=== PATIENT | female | born 1985 | race Hispanic/Latino ===

== ENCOUNTER 2025-10-04 13:53 | Emergency (ER) | payer OTHER ==
[~2025-10-04] VITALS: Ht 152.4 cm; Wt 68.0 kg
[2025-10-04] MEDS: TETRACAINE HCL 0.5% 4 ML OPHTH SOLN OP ONE (14:20)
[2025-10-04] MEDS: FLUORESCEIN SODIUM 1 STRIP STRIP OP ONE (14:20)
--- NOTE | 2025-10-04 14:32 | ERN ---
General Chief Complaint: Eye Problems Stated Complaint: RIGHT EYE DISCOLORATION ONSET YESTERDAY Time Seen by MD: 13:55 History of Present Illness Initial Comments 40-year-old female presents for sudden onset right eye redness beginning yesterday. She has chemosis. No vision changes. No itching. No discharge. No contacts. No other symptoms. No sick contacts. Allergies: Coded Allergies: Iodinated Contrast Media (Unverified Allergy, Unknown, 10/04/25) Penicillins (Unverified Allergy, Unknown, 10/04/25) methylprednisolone (Unverified Allergy, Unknown, 10/04/25) Past Medical History Past Medical History: No Pertinent History Past Surgical History: None ROS Dictation CONSTITUTIONAL: No chills, no fever, no weakness, no diaphoresis, no malaise. HEAD/FACE: No signs of trauma. EENT: Right red eye with chemosis, foreign body sensation RESPIRATORY: No cough, no orthopnea, no SOB, no stridor, no wheezing. CARDIOVASCULAR: No chest pain, no edema, no palpitations, no syncope. GASTROINTESTINAL/ABDOMINAL: No abdominal pain, no constipation, no diarrhea, no nausea, no vomiting. GENITOURINARY: No abnormal discharge, no dysuria, no frequent urination, no hematuria. No complaints of pain in the genitals. MUSCULOSKELETAL: No back pain, no gout, no joint pain, no joint swelling, no muscle pain, no muscle stiffness, no neck pain. INTEGUMENTARY: No change in color, no change in hair/nails, no dryness, no lesion, no lumps, no rash. NEUROLOGICAL/PSYCH: No anxiety, not depressed, no emotional problem, no headache, no numbness, no pre-existing deficit, no history of seizures, no tremors, no weakness. HEMATOLOGIC/LYMPHATIC: Not anemic, no history of blood clots, no apparent bleeding, no bruising, glands not swollen. All Systems Negative, Except as Noted. Physical Exam Physical Exam Dictation VITAL SIGNS: Reviewed. GENERAL APPEARANCE: Alert, oriented x3, no acute distress, obese. HEAD AND FACE: Non-traumatic. EYES: PERRL, pink conjunctivas, eyelid no trauma, anterior chamber clear. EARS: Pinnas intact and no signs of trauma or erythema. Ear canals clear and no discharge. TMs no erythema. NOSE: No discharge, no bleeding. OROPHARYNX: Mouth normal, teeth no caries, tongue pink. Pharynx clear, no erythema. Tonsils no exudates, no abscesses noted. Mucous membrane moist. NECK: Supple, non-tender, no thyromegaly, no masses, no JVD, no bruits. BREAST: Deferred. CHEST: No tenderness, no crepitus, no paradoxical movement, no retractions. LUNGS: Clear, well-ventilated, symmetric, no rales, no wheezing, no rhonchi, no stridor, good breath sounds bilaterally. HEART: Regular rate, regular rhythm, no murmur, no gallops. VASCULAR: No peripheral edema. ABDOMEN: Soft, positive bowel sounds, nondistended, no guarding, nontender, no rebound, no masses no hepatomegaly, no splenomegaly, no Philip's sign, no hernias. RECTAL: Deferred. GENITAL: Deferred. NEUROLOGICAL: Normal speech, gross motor function intact, gross sensory function intact. MUSCULOSKELETAL: Neck nontender, full range of motion, back nontender, full range of motion. EXTREMITIES: Nontender, full range of motion. SKIN: Color pink, dry, no turgor, no rash, no lacerations, no abrasions, no contusions. LYMPHATICS: Deferred. MDM CC: Atraumatic right eye redness Historian: Patient Comorbidities: None Limitations by social determinants of health: None Differential diagnosis: Chemosis, allergic reaction, infectious, trauma or irritation, other Clinically patient has chemosis, no vision changes, CAMILO, EOMI. No signs of glaucoma or under the life-threatening pathology. There was no discharge or signs of bacterial infection. I performed a stain, there is no foreign bodies no major uptake. Symptoms most consistent with a ecchymosis. I suspect allergic versus viral ve rsus some exposure/environmental irritation. There was no signs of systemic or vascular cause no signs of elevated venous pressure or serious ocular emergency such as orbital compartment syndrome or retrobulbar hemorrhage. Plan will be to discharge with pain noted with symptomatic support such as cold compresses and lubricating artificial tears, and avoiding rubbing. ED Course Orders Procedure Category Date Status Time Fluorescein Sodium PHA 10/04/25 In Process (Akhkq-P-Kbmer At) 14:30 Tetracaine Hcl PHA 10/04/25 In Process (Pontocaine 0.5% 14:30 Current Medications Medications (Trade) Dose Ordered Sig/John Route PRN Reason Start Time Stop Time Status Last Admin Dose Admin Fluorescein Sodium (Cqzjh-[id number]-Lqavv At) 1 strip ONCE ONCE OP 10/04/25 14:30 10/04/25 14:31 Tetracaine HCl (Pontocaine 0.5% Ophth Soln) 1 OR 2 DROPS ONCE ONCE OP 10/04/25 14:30 10/04/25 14:31 Vital Signs Date Time Temp Pulse Resp B/P (MAP) Pulse Ox O2 Delivery O2 Flow Rate FiO2 10/04/25 13:56 97.7 79 16 118/51 97 Room Air 0 DX & DISP Disposition: Discharge Departure Impression: Primary Impression: Chemosis Condition: Stable Additional Instructions: Your symptoms are most consistent with chemosis, which is swelling of the conjunctiva. This is often caused by allergies, viral infections, or trauma/irritation. You can apply cold compresses frequently. You can use a lubricating artificial tear. These are [id number]. Avoid rubbing. Do not use contact lenses. If your symptoms do not improve within 48-72 hours, I recommend that you follow up with the front office attendant. Please return to the emergency department if you have any decreased vision, severe eye pain, swelling of the eyelids, fevers, or any other concerning symptom. Referrals: SELF,REFERRAL (PCP) FERNANDO RAMIREZ DO Oct 04, 2025 14:32
[2025-10-04 15:05] VITALS: BP 118/51; PULSE 79; RESP 16; TEMP 97.7; O2SAT 97
== END 2025-10-04 15:09 | disposition home or self-care (01) ==
LOC: EDH 13:53
DX: H11.421 Conjunctival edema, right eye (principal); Z91.041 Radiographic dye allergy status; Z88.0 Allergy status to penicillin; Z88.8 Allergy status to other drugs, medicaments and biological substances
CPT/HCPCS: 99283